=== PATIENT | female | born 1955 | race Caucasian/White ===

== ENCOUNTER 2017-05-15 22:22 | Emergency (ER) | payer OTHER ==
[~2017-05-15] VITALS: Ht 160 cm; Wt 79.4 kg
[~2017-05-15 22:22] MED LIST: COZ50 PO; LEVAQUIN750 MG PO; LOSARTAN POTASS1 TA5 PO; MACROBID100 MG PO; MOTRIN600 MG PO; MOTRIN800 MG PO; PRI20 PO; VITAMIN D2000 I3 PO
[2017-05-15 22:33] VITALS: Ht 160 cm; Wt 79.4 kg
[2017-05-15 23:30] LABS: BASOPHIL % 0.4 % (0-2); PLATELET COUNT 270 x10^3mcL (130-400); RED CELL DISTRIBUTION WIDTH 14.1 % (11.5-14.5)
[2017-05-15 23:40] LABS: CALCIUM 8.9 mg/dL (8.5-10.1); CARBON DIOXIDE 26.2 mmol/L (21-32); CHLORIDE SERUM 109 mmol/L (98-107); CREATININE SERUM 0.6 mg/dL (0.6-1.0); GFR1 > 60 mL/min; GLUCOSE SERUM 101 mg/dL (74-106); POTASSIUM SERUM 3.4 mmol/L (3.5-5.1); SODIUM SERUM 142 mmol/L (136-145)
[2017-05-16 00:28] LABS: microscopic required? YES; urine erythrocyte NEGATIVE (NEGATIVE)
[2017-05-16 01:04] VITALS: BP 143/69
== END 2017-05-16 01:05 | disposition home or self-care (01) ==
LOC: ED 22:22
PROVIDERS: Emergency Medicine
DX: R42 Dizziness and giddiness (principal); N39.0 Urinary tract infection, site not specified; I10 Essential (primary) hypertension; M19.90 Unspecified osteoarthritis, unspecified site; M81.0 Age-related osteoporosis without current pathological fracture; R11.2 Nausea with vomiting, unspecified
CPT/HCPCS: J2405; J7030; J8597

== ENCOUNTER 2018-11-13 09:37 | Inpatient (IN) | payer OTHER, MEDICARE ==
[~2018-11-13] VITALS: Ht 152.4 cm; Wt 83.0 kg
[2018-11-13 09:46] VITALS: Ht 152.4 cm; Wt 83.0 kg
--- NOTE | 2018-11-13 09:49 | NUR ---
EKG IN PROGRESS.
--- NOTE | 2018-11-13 09:53 | NUR ---
DR. VERNON MADE AWARE, OKAY FOR LOBBY. EKG READ. VSS.
--- NOTE | 2018-11-13 10:48 | NUR ---
PT AMBULATORY TO BED ORTHO. FAMILY ASSISTING. PT PRESENTS TO ED WITH C/O INTERMITTENT, SHARP NON RADIATING CP SINCE YESTERDAY 10/04 AT THIS TIME. PT REPORTS SOME DIZZINESS AT THIS TIME. NO NEURO DEFICITS AT THIS TIME, AAOX4 SAMI SPEAKING PT DENIES ANY SOB NO GI OR SYMPTOMS +PMSC TO ALL EXT. PT GOWNED INST TO PROVIDE URINE SAMPLE. AWAITING MD MERRILL AND ORDERS WILL MONITOR
--- NOTE | 2018-11-13 11:10 | NUR ---
DR VEGA AT BEDSIDE FOR MSE
--- NOTE | 2018-11-13 11:15 | NUR ---
URINE COLLECTED AND DIPPED
--- NOTE | 2018-11-13 11:35 | NUR ---
PT MEDICATED PER MD ORDERS SEE EMAR
--- NOTE | 2018-11-13 11:35 | NUR ---
LAB AT BEDSIDE FOR BLOOD DRAW
[2018-11-13 12:06] LABS: BASOPHIL % 0.2 % (0-2); PLATELET COUNT 219 x10^3mcL (130-400); RED CELL DISTRIBUTION WIDTH 14.2 % (11.5-14.5)
[2018-11-13 12:17] LABS: CALCIUM 9.5 mg/dL (8.5-10.1); CARBON DIOXIDE 25.2 mmol/L (21-32); CHLORIDE SERUM 106 mmol/L (98-107); CREATININE SERUM 0.5 mg/dL (0.6-1.0); GFR1 > 60 mL/min; GLUCOSE SERUM 92 mg/dL (74-106); POTASSIUM SERUM 4.4 mmol/L (3.5-5.1); SODIUM SERUM 141 mmol/L (136-145)
[2018-11-13 12:22] LABS: ALBUMIN 3.7 g/dL (3.4-5.0); ALKALINE PHOSPHATASE 72 U/L (46-116); ALT/SGPT 30 U/L (14-59); AST/SGOT 31 U/L (15-37); BILIRUBIN TOTAL 0.6 mg/dL (0.20-1.00); TOTAL PROTEIN, SERUM 7.9 g/dL (6.4-8.2)
[2018-11-13] MEDS ORDERED: SIMVASTATIN20 M1 PO (12:28)
--- NOTE | 2018-11-13 12:30 | NUR ---
POC DISCUSSED WITH PT AND PTS DAUGHTER BY DR VEGA. NO FURTHER ORDERS AT THIS TIME. WILL MONITOR
--- NOTE | 2018-11-13 13:00 | NUR ---
PT LYING IN BED COMFORTABLY STATES CP 5/10 AND ALSO BURNING SENSATION TO MID ABDOMEN. PT BELIEVES SHE SUFFERS FROM GERD. PT AAOX4 NO DISTRESS VSS ON FULL CM SINUS MI. DAUGHTER AT BEDSIDE WILL MONITOR
--- NOTE | 2018-11-13 13:20 | NUR ---
PT OOB TO BATHROOM WITH NO PROBLEM.
--- NOTE | 2018-11-13 14:11 | NUR ---
PT TRANSPORTED TO TELE AT THIS TIME BY MYSELF AND EMT ARMINDA. PT IS AWAKE AND ALERT, RESP E/U, DAUGHTER AT BEDSIDE. PT VERBALIZED UNDERSTANDING OF PLAN OF CARE PRIOR TO TRANSPORT. PT ABLE TO AMBULATE TO TELE BED WITH STEADY GAIT.
[2018-11-13 14:24] VITALS: BP 164/79
--- NOTE | 2018-11-13 14:30 | NUR ---
RECEIVED FROM ER, TRANSPORTED VIA [facility]. AWAKE AND ALERT, ORIENTED TO NAME, PLACE, TIME AND SITUATION. BREATHING EVEN AND UNLABORED ON ROOM AIR, LUNG SOUNDS CLEAR. SINUS BRADYCARDIC ON TELE #2, HR 57/MIN. STATED ONLY HAVING VERY LITTLE PAIN TO CHEST, DESCRIBED PRESSURE. DAUGHTER WITH PT ON ADMISSION TO UNIT. INSTRUCTED PT AND DAUGHTER ON USE OF CALL LIGHT TO CALL FOR ASSISTANCE. PLACED WITHIN EASY REACH. ADMISSION HISTORY AND ASSESSMENT DONE. ENDORSED TO NURSE DE LOS SANTOS.
--- NOTE | 2018-11-13 14:47 | NUR ---
PT IN BED RESTING. NO ACUTE RESP DISTRESS NOTED ON RA. PT C/O SOME CHEST PRESSURE TO RIGHT UPPER CHEST 06/04. PT STATES PAIN IS TOLERABLE AT THIS TIME. RESPIRATORY THERAPIST AT BEDSIDE FOR EKG. WILL CONTINUE TO MONITOR. CALL LIGHT IN REACH. BED IN LOWEST POSITION.
[2018-11-13 14:58] LABS: CHOLESTEROL/HDL RATIO 3.4
[2018-11-13 15:07] LABS: T3 TOTAL 1.31 ng/mL
[2018-11-13 16:32] LABS: FREE T4 1.11 ng/dL (0.76-1.46); FREE THYROXINE INDEX 3.3 ug/dL (1.4-4.5); T4(THYROXINE) 10.4 ug/dL (4.7-13.3)
--- NOTE | 2018-11-13 16:39 | NUR ---
PT AMBULATED TO BATHROOM. STEADY GAIT. TOLERATED WELL. PT GIVEN JELLO AND CRACKERS. PT STATES CHEST PAIN IS THE SAME AND TOLERABLE AT THIS TIME. WILL CONTINUE TO MONITOR. CALL LIGHT IN REACH. BED IN LOWEST POSITION.
--- NOTE | 2018-11-13 17:20 | NUR ---
PT SITTING UP IN BED. PT C/O SOB. PT STATES "FEELS LIKE PRESSURE TO MY CHEST. ITS NOT CHEST PAIN. IT JUST FEELS DIFFICULT TO BREATH" O2 SATURATION CHECKED WAS 94% ON RA. HOB ELEVATED. SPOKE WITH DR. SINGLETON, OKAY TO PUT PT ON 2L NC. PT PLACED ON 2L NC. WILL CONTINUE TO MONITOR. CALL LIGHT IN REACH. BED IN LOWEST POSITION.
[2018-11-13 17:34] VITALS: BP 144/70
[2018-11-13 17:55] VITALS: BP 144/70
--- NOTE | 2018-11-13 19:30 | NUR ---
RECEIVED PT FROM DAY SHIFT RN. PT AAOX4 DENIES ARIAS/DIZZINESS. TELE #2. PT DENIES CHEST PAIN, REPORTS CONTINUE TO FEEL MILD CHEST PRESSURE. BREATHING EVEN AND UNLABORED ON NC 2L/MIN. ABD SOFT/ROUND ACTIVE BOWEL SOUNDS. DENIES ABD PAIN/N/V. IV LAC PATENT, INFUSING WELL. NO SIGNS OF DISTRESS NOTED. FAMILY AT BEDSIDE. CALL BUTTON WITHIN REACH. SAFETY PRECAUTIONS IN PLACE. WILL CONTINUE TO MONITOR.
[2018-11-13 20:55] VITALS: BP 136/68
--- NOTE | 2018-11-14 00:30 | NUR ---
PT RESTING. BREATHING EVEN AND UNLABORED. NO SIGNS OF DISTRESS. IV PATENT, INFUSING WELL. CALL BUTTON WITHIN REACH. SAFETY PRECAUTIONS IN PLACE. DAUGHTER AT BEDSIDE. WILL CONTINUE TO MONITOR.
[2018-11-14 02:41] LABS: UA SPECIFIC GRAVITY <=1.005 (1.005-1.035); microscopic required? YES; urine erythrocyte NEGATIVE (NEGATIVE)
[2018-11-14 02:57] LABS: AMPHETAMINE QUAL UR NONE DETECTED (See below)
--- NOTE | 2018-11-14 04:00 | NUR ---
PT AWAKE. DENIES ANY PAIN. NO SIGNS OF DISTRESS. CALL BUTTON WITHIN REACH. SAFETY PRECAUTIONS IN PLACE. WILL CONTINUE TO MONITOR.
--- NOTE | 2018-11-14 05:01 | NUR ---
PT SLEPT MOST OF THE NIGHT WITH NO SIGNS OF DISTRESS. BREATHING EVEN AND UNLABORED, NC 2L/MIN NO SOB NOTED. PT DENIES ANY CHEST PAIN/PRESSURE. IV PATENT, INFUSING WELL. PT AMBULATORY WITH BRP. NO SIGNS OF DISTRESS. CALL BUTTON WITHIN REACH. SAFETY PRECAUTIONS IN PLACE. DAUGHTER AT BEDSIDE. WILL CONTINUE TO MONITOR AND ENDORSE CARE TO DAY SHIFT RN.
[2018-11-14 05:42] VITALS: BP 121/70
[2018-11-14 06:21] LABS: BASOPHIL % 0.4 % (0-2); PLATELET COUNT 263 x10^3mcL (130-400); RED CELL DISTRIBUTION WIDTH 13.9 % (11.5-14.5)
[2018-11-14 06:45] LABS: CALCIUM 8.7 mg/dL (8.5-10.1); CARBON DIOXIDE 25.6 mmol/L (21-32); CHLORIDE SERUM 109 mmol/L (98-107); CREATININE SERUM 0.6 mg/dL (0.6-1.0); GFR1 > 60 mL/min; GLUCOSE SERUM 91 mg/dL (74-106); POTASSIUM SERUM 3.9 mmol/L (3.5-5.1); SODIUM SERUM 143 mmol/L (136-145)
--- NOTE | 2018-11-14 07:15 | NUR ---
RECEIVED PT FROM [employer] BUSINESS MANAGER. PT AWAKE, ALERT. A/OX4. PT ON ROOM AIR WITH NO RESP DISTRESS NOTED. PT ON TELE 2, PT REPORTS VERY LITTLE CHEST PAIN AT THIS TIME THAT FEELS LIKE "PRESSURE". TOLERABLE AT THIS TIME. IV ACCESS LAC CDI INFUSING NS AT 100ML/HR. PERIPHERAL PULSES PALPABLE, NO EDEMA NOTED. PT DAUGHTER AT BEDSIDE. SAFETY MEASURES IN PLACE, BED LOW AND LOCKED. CALL LIGHT WITHIN REACH.
--- NOTE | 2018-11-14 07:24 | NUR ---
PT RESTING. BREATHING EVEN AND UNLABORED ON RA 97% NO SOB NOTED. IV PATENT, INFUSING WELL WITH NO SIGNS OF DISTRESS. CALL BUTTON WITHIN REACH. SAFETY PRECAUTIONS IN PLACE. DAUGHTER AT BEDSIDE. ENDORSE CARE TO DAY SHIFT RN, ALL QUESTIONS ADDRESSED.
--- NOTE | 2018-11-14 09:02 | NUR ---
DUE MEDS ADMINISTERED. NO ACUTE DISTRESS NOTED AT THIS TIME. PT TOLERATED MEDS WELL. FAMILY AT BEDSIDE. SAFETY MAINTAINED.
[2018-11-14 10:07] VITALS: BP 135/74
--- NOTE | 2018-11-14 11:15 | NUR ---
PT DENIES ANY CHEST PAIN AT THIS TIME. WILL CONTINUE TO MONITOR.
[2018-11-14 13:53] VITALS: BP 149/71
--- NOTE | 2018-11-14 14:50 | NUR ---
ECHOCARDIOGRAM AT BEDSIDE WITH PATIENT. PT DENIES CHEST PAIN. SAFETY MAINTAINED. FAMILY AT BEDSIDE.
[2018-11-14 17:17] VITALS: BP 130/67
[2018-11-14 17:25] VITALS: BP 130/67
--- NOTE | 2018-11-14 18:03 | NUR ---
DISCHARGE INSTRUCTIONS/EDUCATION PROVIDED TO PT AND FAMILY. PT TO FOLLOW UP WITH PCP [facility] APPT PROVIDED. PT AND FAMILY VERBALIZED UNDERSTANDING. IV ACCESS REMOVED WITH CATHETER INTACT. NO BLEEDING, SWELLING NOTED. TELE BOX TAKEN TO PROOF CLERK. PT TO BE TAKEN BY WHEELCHAIR TO PRIVATE [employer] FOR DISCHARGE. SAFETY MAINTAINED.
== END 2018-11-14 18:10 | disposition home or self-care (01) | DRG 243 ==
LOC: ED 09:37 → DU 13:21 → MU 11-14 17:13
PROVIDERS: Emergency Medicine; ADMIT Internal Medicine
DX: K21.9 Gastro-esophageal reflux disease without esophagitis (principal); E78.5 Hyperlipidemia, unspecified; I10 Essential (primary) hypertension; R73.03 Prediabetes; Z90.49 Acquired absence of other specified parts of digestive tract; Z82.49 Family history of ischemic heart disease and other diseases of the circulatory system; Z86.73 Personal history of transient ischemic attack (TIA), and cerebral infarction without residual deficits; Z82.3 Family history of stroke; Z79.899 Other long term (current) drug therapy; Z79.82 Long term (current) use of aspirin
CPT/HCPCS: 83880; 84439; 94150; G0378; J7030; J7620; Q0092